=== PATIENT | female | born 1965 | race Caucasian/White ===

== ENCOUNTER → 2024-03-07 11:24 | Outpatient (REF) | payer OTHER, SELFPAY | LOC: HWRAD 11:24 | PROVIDERS: ATTENDING PHYSICIAN Family Medicine | DX: R06.02 Shortness of breath (principal); S39.012A Strain of muscle, fascia and tendon of lower back, initial encounter | CPT/HCPCS: 71046; 72050; 72070; 72100 ==

== ENCOUNTER 2024-09-11 19:31 | Emergency (ER) | payer MEDICARE, SELFPAY ==
[2024-09-11 19:33] VITALS: BP 126/93
[2024-09-11] MEDS: TORADOL 30 MG IM (20:46)
[2024-09-11] MEDS: DECADRON 10 MG PO (20:47)
--- NOTE | 2024-09-11 23:15 | EDRN ---
Patient came out of room states she's leaving, informed her we were just waiting on results to come back, she states, 'she knows how a hospital works, the images pop right up' informed her that we have to wait for the radiologist to read them.
Patient reports she is going to put her friend in the car and will be back in, patient never came back in after ample amount of time, provider aware as well.
--- NOTE | 2024-09-11 23:40 | ED.MUSCINJ ---
HPI-Injury
General
Chief Complaint: Musculo-Skeletal Complaint
Source: patient
Exam Limitations: none
Time Seen by Provider: 09/11/24 20:10
Nursing documentation reviewed up to this point in time: agreed with
History of Present Illness-Injury
Is this injury a work related problem?: No
Is pt an associate of [facility]?: No
Initial Injury comments:
Patient to ED with complaint of pain to left lower back radiating into buttocks, left ant thigh and then down left leg. Symptoms started 3 days ago. No prior history of same. SHe denies fever/chills, recent illness. No history of trauma. SHe
denies any weakness in extremities. No bowel or bladder symptoms, no saddle paresthesia.
Past History
Past History
ED Past Medical History: None and Other (GERD, hysterectomy, knee surgery)
ED Past Surgical History: Gynecological and Orthopedic
Social History
Tobacco: Smoker
Alcohol: None
Drug: None
Personal: Single
Living: with family
Employment: Employed
Family History
Family History: Other (Her brother is in the hospital here with alcoholic pancreatitis)
Review of Systems
Review of Systems
Allergies reviewed?: Yes
All Other Systems: ROS reviewed and negative except as documented in HPI and ROS
Constitutional: Reports no symptoms
EENT: Reports no symptoms
Respiratory: Reports no symptoms
Cardiac: Reports no symptoms
ABD/GI: Reports no symptoms
Musculoskeletal: Reports back pain (left lower back pain with radiation down left leg)
Skin: Reports no symptoms
Neurological: Reports no symptoms
Psychiatric: Reports no symptoms
Musculoskeletal Injury Exam
Musculoskeletal Injury Exam
Left Lower Back:
Pain with Movement?: Moderate
Tender to palpation?: Mild
Soft tissue swelling?: None
External deformity and angulation?: None
Joint effusion?: None
Contusion?: None
Hematoma-local bleeding into tissue?: None
Strain- Sprain- Tear (Connective tissue injury)?: Moderate
Crepitus with movement?: No
Joint instability?: No
Malalignment/deformity?: No
Range of motion: Limited
Distal skin color and temperature: normal-warm & good color
Capillary Refill: normal
Normal distal neurovascular exam?: Yes
Phy Exam
General Physical Exam
General Presentation: well appearing and mild distress
General age: appears stated age
General Skin: warm and dry
General Habitus: normal
General Mental: alert
Reflexes
Reflexes: +3: Left patellar and +3: Right patellar
Musculoskeletal Exam
Musculoskeletal Exam: neuro vasc intact
Skin Exam
Skin Exam: normal color, warm/dry and no rash
Psychiatric Exam
Psychiatric Exam: normal mood/affect
Injury Course
Orders/Labs/Results
Orders:
Orders
09/11/24 20:41
Lumbar Spine Complete, 4 View [CR Lumbar Spine Comp Min 4 Vw*] Urgent
Comment:
Reason For Exam: low back pain
Periph Venous Lwr Ext Left US [US Periph Venous LOWER Ext LT] Urgent
Comment:
Reason For Exam: LLE pain
09/11/24 20:42
Dexamethasone Pf [Decadron] 10 mg PO NOW STA
Ketorolac [Toradol] 30 mg IV NOW STA
09/11/24 20:46
Ketorolac [Toradol] 30 mg IM NOW STA
*Radiology
Radiology exam reviewed: other (Verbal by US teck [id number] neg for DVT)
*Critical Care Note
Total Time (30-74mins, 75-104mins- exclusive of procedures): Not Applicable
Update Note
Update Note:
Patient left ED prior to US read, felt that the wait was too long for her. SHe was able to ambulate independently out of ED.
ED Attending Note
-
Portions of this chart may have been created with voice recognition software.� Occasional wrong word or��sound alike� substitutions may have occurred due to the inherent limitations of voice recognition software.
Discharge Plan
Departure
Patient Disposition: Elopement
Date of Disposition: 09/11/24
Time of Disposition: 23:44
Patient with high blood pressure during this ER visit?: Yes
Condition: Good
Covid-19: Not Applicable
Discharge Problem:
Sciatica
Prescriptions:
No Action
gabapentin 600 MG tablet
600 mg PO TID
doxycycline hyclate 100 MG capsule
100 mg PO BID
omeprazole 40 MG capsule,delayed release(DR/EC)
40 mg PO BID
naproxen 500 MG tablet
500 mg PO BID
buprenorphine-naloxone [Zubsolv] 1 EACH tablet, sublingual
1 ea sublingual TID
linezolid [Zyvox] 600 MG tablet
600 mg PO BID Qty: 14 0RF
ondansetron HCl 4 MG tablet
4 mg PO TIDPRN PRN (Reason: nausea and vomiting) Qty: 10 0RF
Referrals:
NONE,* [Family Provider] -
Interventions
Interventions:
*Risk Screen - Suicide Last Done: 09/11/24 19:35
*General Assessment Last Done: 09/11/24 19:35
*Neglect/Abuse Screening Last Done: 09/11/24 21:36
*ED- Fall Risk Assessment Last Done: 09/11/24 23:45
*ED COVID-19 Vaccine History Last Done: 09/11/24 19:35
*Nursing Disposition Last Done: 09/11/24 23:45
ED-Musculoskeletal Assessment Last Done: 09/11/24 21:36
Discharge Date and Time
Discharge Date/Time: 09/11/24 23:46
Print Language: LEBANESE
== END 2024-09-11 23:46 | disposition left against medical advice (07) ==
LOC: EMR 19:31
PROVIDERS: EMERGENCY PHYSICIAN Emergency Medicine
DX: M54.42 Lumbago with sciatica, left side (principal); M79.605 Pain in left leg; F17.200 Nicotine dependence, unspecified, uncomplicated
CPT/HCPCS: 96372; 99284; 72110; 93971